=== PATIENT | female | born 1995 | race Caucasian/White ===

== ENCOUNTER 2017-10-16 03:03 | Inpatient (IN) | payer BC ==
[2017-10-16] MEDS ORDERED: Lidocaine 1% 50 ML MDV INJECT PRN (03:34)
[2017-10-16] MEDS ORDERED: Misoprostol 200 MCG Tab PO PRN (03:34)
[2017-10-16] MEDS ORDERED: Water For Irrigation,Sterile 1,000 ML Container IRR PRN (03:34)
[2017-10-16] MEDS ORDERED: Butorphanol 1 MG/ML SDV IVPUSH PRN (03:34)
[2017-10-16] MEDS ORDERED: Carboprost Tromethamine 250 MCG/1 ML Amp IM PRN (03:34)
[2017-10-16] MEDS ORDERED: Nalbuphine 10 MG/1 ML Vial IVPUSH PRN (03:34)
[2017-10-16] MEDS ORDERED: Sodium Chloride 0.9% 10 ML Syringe FLUSH PRN (03:34)
[2017-10-16] MEDS ORDERED: Methylergonovine 0.2 MG/1 ML Amp IM PRN (03:34)
[2017-10-16] MEDS ORDERED: Sodium Chloride 0.9% 2.5 ML Syringe FLUSH PRN (03:34)
[2017-10-16] MEDS ORDERED: Oxytocin/0.9 % Sodium Chloride 30 UNIT/500 ML BAG IV SCH (03:45)
[2017-10-16] MEDS ORDERED: Lactated Ringers 1,000 ML IV SCH (03:45)
--- NOTE | 2017-10-16 03:57 | PCM.LDHP ---
L&D History of Present Illness - General Date of Service: 10/16/17 Admit Problem/Dx: Patient Status Order with Admit Dx/Problem 10/16/17 03:11 Patient Status [ADT] Routine 10/16/17 03:34 Patient Status [ADT] Routine Admission Diagnosis/Problem Admission Diagnosis/Problem 10/16/17 03:52 22 yo 39 4/7wks EDC 10/19/2017. B+, RI, GBS neg, Active labor, intact Source of Information: Patient History Limitations: Reports: No Limitations - History of Present Illness Location, : Reports: Abdomen Improves with: Reports: None Worsens with: Reports: None Associated Symptoms: Reports: N - Related Data Allergies/Adverse Reactions: Allergies Allergy/AdvReac Type Severity Reaction Status Date / Time No Known Allergies Allergy Verified 10/09/17 15:54 H&P Review of Systems - Review of Systems: Review Of Systems: See Below General: Reports: No Symptoms HEENT: Reports: No Symptoms Pulmonary: Reports: No Symptoms Cardiovascular: Reports: No Symptoms Gastrointestinal: Reports: No Symptoms Genitourinary: Reports: No Symptoms Musculoskeletal: Reports: No Symptoms Skin: Reports: No Symptoms Psychiatric: Reports: No Symptoms Neurological: Reports: No Symptoms Hematologic/Lymphatic: Reports: No Symptoms Immunologic: Reports: No Symptoms L&D Exam - Exam Exam: See Below - Vital Signs Weight: 87.543 kg - OB Specific Fundal Height In cm: 39 Movement: Active Heart Tones: Present Presentation: Vertex - Kam Score Kam Score Cervix Position: Anterior Kam Score Consistency: Soft Kam Score Effacement: >80% Kam Score Dilation: > 5 cm Kam Score Infant's Station: -1 ,0 Kam Score Total: 12 - Exam General: Alert, Oriented, Cooperative HEENT: Hearing Intact Lungs: Normal Respiratory Effort GI/Abdominal Exam: Soft, Non-Tender Rectal Exam: Deferred Genitourinary: Normal external exam, Normal bimanual exam, Cervical dilitation Back Exam: Full Range of Motion, Other Extremities: Normal Range of Motion, No Pedal Edema, Normal Capillary Refill Skin: Warm, Dry, Intact Neurological: Reflexes Equal Bilateral, Normal Speech, Normal Tone Psychiatric: Alert, Normal Affect, Normal Mood - Problem List (1) Supervision of normal IUP (intrauterine ) in multigravida SNOMED Code(s): 001711159, 534740822 ICD Code: Z34.80 - ENCOUNTER FOR SUPRVSN OF NORMAL , UNSP TRIMESTER Status: Acute Current Visit: Yes Qualifiers: Trimester: third trimester Qualified Code(s): Z34.83 - Encounter for supervision of other normal , third trimester Problem List Initiated/Reviewed/Updated: Yes Orders Last 24hrs: Active Orders 24 hr Category Date Time Status Patient Status [ADT] Routine ADT 10/16/17 03:11 Active Patient Status [ADT] Routine ADT 10/16/17 03:34 Active Heart Tones [RC] CONTINUOUS Care 10/16/17 03:34 Active Non Stress Test [RC] PER UNIT ROUTINE Care 10/16/17 03:11 Active Non Stress Test [RC] PER UNIT ROUTINE Care 10/16/17 03:34 Active May Shower [RC] ASDIRECTED Care 10/16/17 03:34 Active Notify Provider [RC] PRN Care 10/16/17 03:34 Active Up ad Nettie [RC] ASDIRECTED Care 10/16/17 03:11 Active Up ad Nettie [RC] ASDIRECTED Care 10/16/17 03:34 Active Vaginal Exam [RC] Click to Edit Care 10/16/17 03:11 Active Vaginal Exam [RC] PRN Care 10/16/17 03:34 Active Vital Signs [RC] PER UNIT ROUTINE Care 10/16/17 03:11 Active Vital Signs [RC] PER UNIT ROUTINE Care 10/16/17 03:34 Active CBC W/O DIFF,HEMOGRAM [HEME] Routine Lab 10/16/17 03:34 Ordered TYPE AND SCREEN [BBK] Routine Lab 10/16/17 03:34 Ordered Butorphanol [Stadol] Med 10/16/17 03:34 Active 1 mg IVPUSH Q1H PRN Carboprost Tromethamine [Hemabate DS] Med 10/16/17 03:34 Active 250 mcg IM ASDIRECTED PRN Lactated Ringers [Ringers, Lactated] 1,000 ml Med 10/16/17 03:45 Active IV ASDIRECTED Lidocaine 1% [Xylocaine 1%] Med 10/16/17 03:34 Active 50 ml INJECT .ONCE PRN Methylergonovine [Methergine] Med 10/16/17 03:34 Active 0.2 mg IM ASDIRECTED PRN Misoprostol [Cytotec] Med 10/16/17 03:34 Active 200 mcg PO .ONCE PRN Nalbuphine [Nubain] Med 10/16/17 03:34 Active 10 mg IVPUSH Q1H PRN Oxytocin/0.9 % Sodium Chloride [Oxytocin 30 Unit/500 ML Med 10/16/17 03:45 Active -NS] 30 unit in 500 ml IV ASDIRECTED Sodium Chloride 0.9% [Saline Flush] Med 10/16/17 03:34 Active 10 ml FLUSH ASDIRECTED PRN Sodium Chloride 0.9% [Saline Flush] Med 10/16/17 03:34 Active 2.5 ml FLUSH ASDIRECTED PRN Water For Irrigation,Sterile [Sterile Water for Med 10/16/17 03:34 Active Irrigation] 1,000 ml IRR ASDIRECTED PRN Scalp Electrode [WOMSER] Per Unit Routine Oth 10/16/17 03:34 Ordered Peripheral IV Insertion Adult [OM.PC] Routine Oth 10/16/17 03:34 Ordered Resuscitation Status Routine Resus Stat 10/16/17 03:34 Ordered Medication Orders Butorphanol Tartrate (Stadol) 1 mg IVPUSH Q1H PRN PRN Reason: Pain Carboprost Tromethamine (Hemabate Ds) 250 mcg IM ASDIRECTED PRN PRN Reason: Post Hemorrhage Lactated Ringer's (Ringers, Lactated) 1,000 mls @ 150 mls/hr IV ASDIRECTED LATANYA Oxytocin/Sodium Chloride (Oxytocin 30 Unit/500 Ml-Ns) 30 unit in 500 mls @ 999 mls/hr IV ASDIRECTED LATANYA Lidocaine HCl (Xylocaine 1%) 50 ml INJECT .ONCE PRN PRN Reason: Laceration repair Methylergonovine Maleate (Methergine) 0.2 mg IM ASDIRECTED PRN PRN Reason: Post Hemorrhage Misoprostol (Cytotec) 200 mcg PO .ONCE PRN PRN Reason: Post Hemorrhage Nalbuphine HCl (Nubain) 10 mg IVPUSH Q1H PRN PRN Reason: Pain (severe 7-10) Sodium Chloride (Saline Flush) 10 ml FLUSH ASDIRECTED PRN PRN Reason: Keep Vein Open Sodium Chloride (Saline Flush) 2.5 ml FLUSH ASDIRECTED PRN PRN Reason: Keep Vein Open Sterile Water (Sterile Water For Irrigation) 1,000 ml IRR ASDIRECTED PRN PRN Reason: delivery Assessment/Plan Comment:: Labor A: 22 yo 39 4/7wks EDC 10/19/2017. B+, RI, GBS neg, Active labor, intact P: Admit to L&D, epidural prn, anticipate . Dr Bonilla updated on pt status.
--- NOTE | 2017-10-16 04:32 | PCM.DEL ---
L & D Note - General Info Date of Service: 10/16/17 Mother's Due Date: 10/19/17 - Delivery Note Labor: Spontaneous Delivery Outcome: Livebirth Infant Delivery Method: Spontaneous Vaginal Delivery-Single Delivery Mode: Spontaneous Presentation: Vertex Nuchal Cord: None Anesthesia Type: None Amniotic Fluid Description: Clear Episiotomy Type: None Laceration: None Placenta: Intact, Spontaneous Cord: 3 Vessels Estimated Blood Loss: 150 Resuscitation Needed: No Score 1 min: 9 Score 5 min: 9 Second Stage Interventions: Reports: Other (see below) (Head delivered spont. Body followed easily) Delivery Comments (Free Text/Narrative):: of viable female over intact perineum. Head delivered without pushing and then shoulders and body followed easily. to mothers abdomen with RN at for eval. Delayed cord clamping. Pitocin to IVF. Cord clamped and cut. pink and crying. Placenta delivered grossly intact. Inspection noted intact perineum. Infant APGARS 9/9, Wt 7lb 7oz. EBL 150. Infant and mother left in stable condition for recovery. - General Info Date of Service: 10/16/17 Admission Dx/Problem (Free Text): Patient Status Order with Admit Dx/Problem 10/16/17 03:11 Patient Status [ADT] Routine 10/16/17 03:34 Patient Status [ADT] Routine Admission Diagnosis/Problem Admission Diagnosis/Problem 10/16/17 03:52 22 yo 39 4/7wks EDC 10/19/2017. B+, RI, GBS neg, Active labor, intact Functional Status: Reports: Pain Controlled, Tolerating Diet - Review of Systems General: Reports: No Symptoms HEENT: Reports: No Symptoms Pulmonary: Reports: No Symptoms Cardiovascular: Reports: No Symptoms Gastrointestinal: Reports: No Symptoms Genitourinary: Reports: No Symptoms Musculoskeletal: Reports: No Symptoms Skin: Reports: No Symptoms Neurological: Reports: No Symptoms Psychiatric: Reports: No Symptoms - Patient Data Weight - Most Recent: 87.543 kg Lab Results Last 24 Hours: Laboratory Results - last 24 hr 10/16/17 Range/Units 03:47 WBC 16.52 H (4.0-11.0) K/uL RBC 4.63 (4.30-5.90) M/uL Hgb 11.8 L (12.0-16.0) g/dL Hct 36.1 (36.0-46.0) % MCV 78.0 L (80.0-98.0) fL MCH 25.5 L (27.0-32.0) pg MCHC 32.7 (31.0-37.0) g/dL RDW Std Deviation 41.1 (28.0-62.0) fl RDW Coeff of Massimo 15 (11.0-15.0) % Plt Count 202 (150-400) K/uL MPV 9.90 (7.40-12.00) fL Nucleated RBC % 0.0 /100WBC Nucleated RBCs # 0 K/uL Med Orders - Current: Current Medications Butorphanol Tartrate (Stadol) 1 mg IVPUSH Q1H PRN PRN Reason: Pain Carboprost Tromethamine (Hemabate Ds) 250 mcg IM ASDIRECTED PRN PRN Reason: Post Hemorrhage Lactated Ringer's (Ringers, Lactated) 1,000 mls @ 150 mls/hr IV ASDIRECTED [facility] Last Admin: 10/16/17 04:06 Dose: 150 mls/hr Oxytocin/Sodium Chloride (Oxytocin 30 Unit/500 Ml-Ns) 30 unit in 500 mls @ 999 mls/hr IV ASDIRECTED [facility] Last Admin: 10/16/17 04:06 Dose: 999 mls/hr Lidocaine HCl (Xylocaine 1%) 50 ml INJECT .ONCE PRN PRN Reason: Laceration repair Methylergonovine Maleate (Methergine) 0.2 mg IM ASDIRECTED PRN PRN Reason: Post Hemorrhage Misoprostol (Cytotec) 200 mcg PO .ONCE PRN PRN Reason: Post Hemorrhage Nalbuphine HCl (Nubain) 10 mg IVPUSH Q1H PRN PRN Reason: Pain (severe 7-10) Sodium Chloride (Saline Flush) 10 ml FLUSH ASDIRECTED PRN PRN Reason: Keep Vein Open Sodium Chloride (Saline Flush) 2.5 ml FLUSH ASDIRECTED PRN PRN Reason: Keep Vein Open Sterile Water (Sterile Water For Irrigation) 1,000 ml IRR ASDIRECTED PRN PRN Reason: delivery - Exam General: Alert, Oriented, Cooperative, No Acute Distress Lungs: Normal Respiratory Effort GI/Abdominal Exam: Soft, Non-Tender (Female) Exam: Normal External Exam, Normal Speculum Exam, Vaginal Bleeding Back Exam: Full Range of Motion, Other Extremities: Normal Range of Motion, No Pedal Edema, Normal Capillary Refill Skin: Warm, Dry, Intact Neurological: No New Focal Deficit, Normal Speech, Normal Tone Psy/Mental Status: Alert, Normal Affect, Normal Mood - Problem List & Annotations (1) Supervision of normal IUP (intrauterine ) in multigravida SNOMED Code(s): 895346191, 020848828 Code(s): Z34.80 - ENCOUNTER FOR SUPRVSN OF NORMAL , UNSP TRIMESTER Status: Acute Current Visit: Yes Qualifiers: Trimester: third trimester Qualified Code(s): Z34.83 - Encounter for supervision of other normal , third trimester (2) (normal spontaneous vaginal delivery) SNOMED Code(s): 91387882 Code(s): O80 - ENCOUNTER FOR FULL-TERM UNCOMPLICATED DELIVERY Status: Acute Priority: High Current Visit: Yes - Problem List Review Problem List Initiated/Reviewed/Updated: Yes - Plan Plan:: Labor A: 22 yo 39 4/7wks EDC 10/19/2017. B+, RI, GBS neg, Active labor, intact P: Admit to L&D, epidural prn, anticipate . Dr Bonilla updated on pt status. Delivery A: of healthy baby girl Sara Wisdom, APGARS 9/9, Wt: 7lb 7oz. Intact perineum, EBL 150cc. Stable mom and baby P; routine pp plan of care.
[2017-10-16] MEDS ORDERED: Benzocaine/Menthol 20%-0.5% Spray 78 GM Cannister TOP PRN (04:37)
[2017-10-16] MEDS ORDERED: oxyCODONE 5 MG Tab PO PRN (04:37)
[2017-10-16] MEDS ORDERED: Acetaminophen 500 MG Tab PO PRN (04:37)
[2017-10-16] MEDS ORDERED: Witch Hazel Medicated Pads 40/Jar TOP PRN (04:37)
[2017-10-16] MEDS ORDERED: Docusate Sodium 100 MG Cap PO PRN (04:37)
[2017-10-16] MEDS ORDERED: Ibuprofen 400 MG Tab PO PRN (04:37)
[2017-10-16] MEDS ORDERED: Bisacodyl 10 MG Supp RECTAL PRN (04:37)
[2017-10-16] MEDS ORDERED: Lanolin 100% Cream 7 GM Tube TOP PRN (04:37)
[2017-10-16] MEDS: Ibuprofen 800 MG Tab PO PRN ×3 (04:52→17:55)
[2017-10-16] MEDS: Acetaminophen 500 MG Tab PO PRN ×2 (16:49→20:57)
--- NOTE | 2017-10-17 08:08 | PCM.DCSUM1 ---
Discharge Summary - Hospital Course Free Text/Narrative:: Discharge home with infant. Follow up 6 weeks for post visit or sooner if needed. - Discharge Data Discharge Date: 10/17/17 Discharge Disposition: Home, Self-Care 01 Condition: Good - Discharge Diagnosis/Problem(s) (1) Supervision of normal IUP (intrauterine ) in multigravida SNOMED Code(s): 340714089, 503367549 ICD Code: Z34.80 - ENCOUNTER FOR SUPRVSN OF NORMAL , UNSP TRIMESTER Status: Acute Current Visit: Yes Qualifiers: Trimester: third trimester Qualified Code(s): Z34.83 - Encounter for supervision of other normal , third trimester (2) (normal spontaneous vaginal delivery) SNOMED Code(s): 00331635 ICD Code: O80 - ENCOUNTER FOR FULL-TERM UNCOMPLICATED DELIVERY Status: Acute Priority: High Current Visit: Yes - Patient Instructions Diet: Usual Diet as Tolerated Activity: As Tolerated, No Strenuous Activities, Rest and Relax Today Driving: May Drive Today Showering/Bathing: May Shower Notify Provider of: Fever, Increased Pain, Swelling and Redness, Drainage, Nausea and/or Vomiting Other/Special Instructions: Discharge home with infant. Follow up 6 weeks for post visit or sooner if needed. - Discharge Plan Referrals: [facility] [Outside] Madyson Henriquez CNM [Mid-] - 11/29/17 3:00 pm - General Info Date of Service: 10/17/17 Admission Dx/Problem (Free Text: Patient Status Order with Admit Dx/Problem 10/16/17 03:11 Patient Status [ADT] Routine 10/16/17 03:34 Patient Status [ADT] Routine Admission Diagnosis/Problem Admission Diagnosis/Problem 10/16/17 03:52 22 yo 39 4/7wks EDC 10/19/2017. B+, RI, GBS neg, Active labor, intact Functional Status: Reports: Pain Controlled, Tolerating Diet, Ambulating, Urinating - Review of Systems General: Reports: No Symptoms HEENT: Reports: No Symptoms Pulmonary: Reports: No Symptoms Cardiovascular: Reports: No Symptoms Gastrointestinal: Reports: No Symptoms Genitourinary: Reports: No Symptoms Musculoskeletal: Reports: No Symptoms Skin: Reports: No Symptoms Neurological: Reports: No Symptoms Psychiatric: Reports: No Symptoms - Patient Data Vitals - Most Recent: Last Vital Signs Temp 37.1 C 10/16/17 20:00 Pulse 69 10/16/17 20:00 Resp 18 10/16/17 20:00 BP 111/75 10/16/17 20:00 Pulse Ox 97 10/16/17 20:00 Weight - Most Recent: 87.543 kg Med Orders - Current: Current Medications Acetaminophen (Tylenol Extra Strength) 500 mg PO Q4H PRN PRN Reason: Pain Acetaminophen (Tylenol Extra Strength) 1,000 mg PO Q4H PRN PRN Reason: Pain Last Admin: 10/16/17 20:57 Dose: 1,000 mg Benzocaine/Menthol (Dermoplast Pain Relief 20%-0.5% [place]) 78 gm TOP ASDIRECTED PRN PRN Reason: Perineal Comfort Measure Bisacodyl (Dulcolax) 10 mg RECTAL .ONCE PRN PRN Reason: Constipation Docusate Sodium (Colace) 100 mg PO BID PRN PRN Reason: Constipation Emollient Ointment (Lansinoh Hpa) 0 gm TOP ASDIRECTED PRN PRN Reason: Sore Nipples Ibuprofen (Motrin) 400 mg PO Q4H PRN PRN Reason: Pain Last Admin: 10/17/17 05:07 Dose: 400 mg Ibuprofen (Motrin) 800 mg PO Q6H PRN PRN Reason: Pain Last Admin: 10/16/17 17:55 Dose: 800 mg Oxycodone HCl (Oxycodone) 5 mg PO Q2H PRN PRN Reason: Pain Last Admin: 10/16/17 16:49 Dose: 5 mg Witch [place] (Tucks) 1 pad TOP ASDIRECTED PRN PRN Reason: comfort care Discontinued Medications Butorphanol Tartrate (Stadol) 1 mg IVPUSH Q1H PRN PRN Reason: Pain Carboprost Tromethamine (Hemabate Ds) 250 mcg IM ASDIRECTED PRN PRN Reason: Post Hemorrhage Lactated Ringer's (Ringers, Lactated) 1,000 mls @ 150 mls/hr IV ASDIRECTED LATANYA Last Admin: 10/16/17 04:06 Dose: 150 mls/hr Oxytocin/Sodium Chloride (Oxytocin 30 Unit/500 Ml-Ns) 30 unit in 500 mls @ 999 mls/hr IV ASDIRECTED [facility] Last Admin: 10/16/17 04:06 Dose: 999 mls/hr Lidocaine HCl (Xylocaine 1%) 50 ml INJECT .ONCE PRN PRN Reason: Laceration repair Methylergonovine Maleate (Methergine) 0.2 mg IM ASDIRECTED PRN PRN Reason: Post Hemorrhage Misoprostol (Cytotec) 200 mcg PO .ONCE PRN PRN Reason: Post Hemorrhage Nalbuphine HCl (Nubain) 10 mg IVPUSH Q1H PRN PRN Reason: Pain (severe 7-10) Sodium Chloride (Saline Flush) 10 ml FLUSH ASDIRECTED PRN PRN Reason: Keep Vein Open Sodium Chloride (Saline Flush) 2.5 ml FLUSH ASDIRECTED PRN PRN Reason: Keep Vein Open Sterile Water (Sterile Water For Irrigation) 1,000 ml IRR ASDIRECTED PRN PRN Reason: delivery - Exam General: Reports: Alert, Oriented, Cooperative, No Acute Distress Lungs: Reports: Normal Respiratory Effort GI/Abdominal Exam: Soft, Non-Tender (Female) Exam: Vaginal Bleeding Rectal (Female) Exam: Deferred Back Exam: Reports: Full Range of Motion Extremities: Normal Range of Motion, Non-Tender, No Pedal Edema, Normal Capillary Refill Skin: Reports: Warm, Dry, Intact Neurological: Reports: No New Focal Deficit, Normal Gait, Normal Speech, Normal Tone Psy/Mental Status: Reports: Alert, Normal Affect, Normal Mood *Q Meaningful Use (DIS) - VTE *Q VTE Criteria *Q: - Stroke *Q Stroke Criteria *Q: - AMI *Q AMI Criteria *Q:
[2017-10-17] MEDS: Ibuprofen 800 MG Tab PO PRN (11:04)
== END 2017-10-17 12:15 | disposition home or self-care (01) | DRG 560 ==
LOC: MW.OBCHECK 03:03 → MW.OB 03:06 → MW.OBCHECK 03:34 → OBSVTOIN 04:04
PROVIDERS: ADMIT Obstetrics & Gynecology; ATTEND Obstetrics & Gynecology
PROC: 10E0XZZ Delivery of Products of Conception, External Approach (ICD-10-PCS; principal; 2017-10-16)
DX: O80 Encounter for full-term uncomplicated delivery (principal); Z3A.39 39 weeks gestation of pregnancy; Z37.0 Single live birth
CPT/HCPCS: 59025; 59409; 85027; 86850; 86900; 86901; A9270-GY; J2590; J7120

== ENCOUNTER 2019-03-02 02:16 | Inpatient (IN) | payer BC ==
[~2019-03-02 02:16] MED LIST: Ampicillin 2 GM in Sodium Chloride 0.9% 100 ML IV ONE
[2019-03-02] MEDS ORDERED: Methylergonovine 0.2 MG/1 ML Amp IM PRN (02:31)
[2019-03-02] MEDS ORDERED: Butorphanol 1 MG/ML SDV IVPUSH PRN (02:31)
[2019-03-02] MEDS ORDERED: Carboprost Tromethamine 250 MCG/1 ML Amp IM PRN (02:31)
[2019-03-02] MEDS ORDERED: Sodium Chloride 0.9% 10 ML Syringe FLUSH PRN (02:31)
[2019-03-02] MEDS ORDERED: Tranexamic Acid 1,000 MG in Sodium Chloride 0.9% 100 ML IV PRN (02:31)
[2019-03-02] MEDS ORDERED: Lidocaine 1% 50 ML MDV INJECT PRN (02:31)
[2019-03-02] MEDS ORDERED: Sodium Chloride 0.9% 10 ML SDV IV PRN (02:31)
[2019-03-02] MEDS ORDERED: Ondansetron 4 MG/2 ML SDV IV PRN (02:31)
[2019-03-02] MEDS ORDERED: Misoprostol 200 MCG Tab PO PRN (02:31)
[2019-03-02] MEDS ORDERED: Sodium Chloride 0.9% 2.5 ML Syringe FLUSH PRN (02:31)
[2019-03-02] MEDS ORDERED: Nalbuphine 10 MG/1 ML Vial IVPUSH PRN (02:31)
[2019-03-02] MEDS ORDERED: Water For Irrigation,Sterile 1,000 ML Container IRR PRN (02:31)
[2019-03-02] MEDS ORDERED: Oxytocin/0.9 % Sodium Chloride 30 UNIT/500 ML BAG IV SCH (02:45)
[2019-03-02] MEDS ORDERED: Lactated Ringers 1,000 ML IV SCH (02:45)
--- NOTE | 2019-03-02 02:55 | PCM.LDHP ---
L&D History of Present Illness - General Date of Service: 03/02/19 Admit Problem/Dx: Patient Status Order with Admit Dx/Problem 03/02/19 02:31 Patient Status [ADT] Routine Admission Diagnosis/Problem Admission Diagnosis/Problem 03/02/19 02:51 23 yo EDC 02/25/2019 40 5/7wks B+. R=equivocal, GBA pos. Active labor Source of Information: Patient History Limitations: Reports: No Limitations - History of Present Illness Timing/Duration: Reports: minutes: Location, : Reports: Abdomen Quality: Reports: Stabbing Severity: Severe Improves with: Reports: None Worsens with: Reports: None Associated Symptoms: Reports: N - Related Data Allergies/Adverse Reactions: Allergies Allergy/AdvReac Type Severity Reaction Status Date / Time No Known Allergies Allergy Verified 10/15/18 01:22 Past Medical History - Past Health History Medical/Surgical History: Denies Medical/Surgical History [employer] History: Reports: , Spontaneous Social & Family History - Family History Family Medical History: Noncontributory - Caffeine Use Caffeine Use: Reports: Coffee, Soda H&P Review of Systems - Review of Systems: Review Of Systems: See Below General: Reports: No Symptoms HEENT: Reports: No Symptoms Pulmonary: Reports: No Symptoms Cardiovascular: Reports: No Symptoms Gastrointestinal: Reports: No Symptoms Genitourinary: Reports: No Symptoms Musculoskeletal: Reports: No Symptoms Skin: Reports: No Symptoms Psychiatric: Reports: No Symptoms Neurological: Reports: No Symptoms Hematologic/Lymphatic: Reports: No Symptoms Immunologic: Reports: No Symptoms L&D Exam - Exam Exam: See Below - OB Specific Contraction Intensity: Moderate to Strong Movement: Active Heart Tones: Present Heart Rate (FHR) Variability: Moderate (6-25 bmp) Presentation: Vertex - Kam Score Kam Score Cervix Position: Midposition Kam Score Consistency: Soft Kam Score Effacement: >80% Kam Score Dilation: > 5 cm Kam Score Infant's Station: -2 Kam Score Total: 10 - Exam General: Alert, Oriented Lungs: Normal Respiratory Effort Rectal Exam: Deferred Genitourinary: Normal external exam, Normal bimanual exam, Cervical dilitation. No: Cervical fluid Back Exam: Full Range of Motion Extremities: Normal Range of Motion, Non-Tender Skin: Warm, Dry, Intact Neurological: Reflexes Equal Bilateral, Strength Equal Bilateral, Normal Speech , Normal Tone, Sensation Intact Psychiatric: Alert, Normal Affect, Normal Mood - Problem List (1) Supervision of normal IUP (intrauterine ) in multigravida SNOMED Code(s): 134998260, 439468569, 539348286 ICD Code: Z34.80 - ENCOUNTER FOR SUPRVSN OF NORMAL , UNSP TRIMESTER Status: Acute Priority: High Current Visit: No Qualifiers: Trimester: third trimester Problem List Initiated/Reviewed/Updated: Yes Orders Last 24hrs: Active Orders 24 hr Category Date Time Status Patient Status [ADT] Routine ADT 03/02/19 02:31 Active Heart Tones [RC] CONTINUOUS Care 03/02/19 02:31 Active Non Stress Test [RC] PER UNIT ROUTINE Care 03/02/19 02:31 Active May Shower [RC] ASDIRECTED Care 03/02/19 02:31 Active Notify Provider [RC] PRN Care 03/02/19 02:31 Active Up ad Nettie [RC] ASDIRECTED Care 03/02/19 02:31 Active Vaginal Exam [RC] PRN Care 03/02/19 02:31 Active Vital Signs [RC] PER UNIT ROUTINE Care 03/02/19 02:31 Active CBC W/O DIFF,HEMOGRAM [HEME] Routine Lab 03/02/19 02:31 Ordered TYPE AND SCREEN [BBK] Routine Lab 03/02/19 02:31 Ordered Ampicillin 1 gm Med 03/02/19 06:00 Active Sodium Chloride 0.9% [Normal Saline] 50 ml IV Q4H Butorphanol [Stadol] Med 03/02/19 02:31 Active 1 mg IVPUSH Q1H PRN Carboprost Tromethamine [Hemabate DS] Med 03/02/19 02:31 Active 250 mcg IM ASDIRECTED PRN Lactated Ringers [Ringers, Lactated] 1,000 ml Med 03/02/19 02:45 Active IV ASDIRECTED Lidocaine 1% [Xylocaine 1%] Med 03/02/19 02:31 Active 50 ml INJECT ONETIME PRN Methylergonovine [Methergine] Med 03/02/19 02:31 Active 0.2 mg IM ASDIRECTED PRN Nalbuphine [Nubain] Med 03/02/19 02:31 Active 10 mg IVPUSH Q1H PRN Ondansetron [Zofran] Med 03/02/19 02:31 Active 4 mg IV Q4H PRN Oxytocin/0.9 % Sodium Chloride [Oxytocin 30 Unit/500 ML Med 03/02/19 02:45 Active -NS] 30 unit in 500 ml IV TITRATE Sodium Chloride 0.9% [Normal Saline] Med 03/02/19 02:31 Active 10 ml IV ASDIRECTED PRN Sodium Chloride 0.9% [Saline Flush] Med 03/02/19 02:31 Active 10 ml FLUSH ASDIRECTED PRN Sodium Chloride 0.9% [Saline Flush] Med 03/02/19 02:31 Active 2.5 ml FLUSH ASDIRECTED PRN Tranexamic Acid [Cyklokapron] 1,000 mg Med 03/02/19 02:31 Active Sodium Chloride 0.9% [Normal Saline] 100 ml IV ONETIME Water For Irrigation,Sterile [Sterile Water for Med 03/02/19 02:31 Active Irrigation] 1,000 ml IRR ASDIRECTED PRN miSOPROStol [Cytotec] Med 03/02/19 02:31 Active 200 mcg PO ONETIME PRN Scalp Electrode [WOMSER] Per Unit Routine Oth 03/02/19 02:31 Ordered Peripheral IV Insertion Adult [OM.PC] Routine Oth 03/02/19 02:31 Ordered Resuscitation Status Routine Resus Stat 03/02/19 02:31 Ordered Medication Orders Butorphanol Tartrate (Stadol) 1 mg IVPUSH Q1H PRN PRN Reason: Pain Carboprost Tromethamine (Hemabate Ds) 250 mcg IM ASDIRECTED PRN PRN Reason: Post Hemorrhage Lactated Ringer's (Ringers, Lactated) 1,000 mls @ 150 mls/hr IV ASDIRECTED LATANYA Oxytocin/Sodium Chloride (Oxytocin 30 Unit/500 Ml-Ns) 30 unit in 500 mls @ 999 mls/hr IV TITRATE LATANYA Tranexamic Acid 1,000 mg/ (Sodium Chloride) 110 mls @ 660 mls/hr IV ONETIME PRN PRN Reason: Bleeding Ampicillin Sodium 1 gm/ Sodium (Chloride) 50 mls @ 100 mls/hr IV Q4H LATANYA Lidocaine HCl (Xylocaine 1%) 50 ml INJECT ONETIME PRN PRN Reason: Laceration repair Methylergonovine Maleate (Methergine) 0.2 mg IM ASDIRECTED PRN PRN Reason: Post Hemorrhage Misoprostol (Cytotec) 200 mcg PO ONETIME PRN PRN Reason: Post Hemorrhage Nalbuphine HCl (Nubain) 10 mg IVPUSH Q1H PRN PRN Reason: Pain (severe 7-10) Ondansetron HCl (Zofran) 4 mg IV Q4H PRN PRN Reason: Nausea/Vomiting Sodium Chloride (Saline Flush) 10 ml FLUSH ASDIRECTED PRN PRN Reason: Keep Vein Open Sodium Chloride (Saline Flush) 2.5 ml FLUSH ASDIRECTED PRN PRN Reason: Keep Vein Open Sodium Chloride (Normal Saline) 10 ml IV ASDIRECTED PRN PRN Reason: IV Use Sterile Water (Sterile Water For Irrigation) 1,000 ml IRR ASDIRECTED PRN PRN Reason: delivery Assessment/Plan Comment:: Labor A: 23 yo EDC 02/25/2019 40 5/7wks B+. R=equivocal, GBA pos. Active labor P: Admit, Amp for GBS pos, epidural now, anticipate , Dr Bonilla updated
--- NOTE | 2019-03-02 03:33 | PCM.DEL ---
L & D Note - General Info Date of Service: 03/02/19 Mother's Due Date: 02/25/19 - Delivery Note Labor: Spontaneous Delivery Outcome: Livebirth Infant Delivery Method: Spontaneous Vaginal Delivery-Single Delivery Mode: Spontaneous Presentation: Vertex Nuchal Cord: Present Anesthesia Type: None Episiotomy Type: None Laceration: None Placenta: Intact, Spontaneous Cord: 3 Vessels Resuscitation Needed: No : Stimulated Score 1 min: 9 Score 5 min: 9 Second Stage Interventions: Reports: Pushing Effectively Delivery Comments (Free Text/Narrative):: of viable female, head delivered with good pushing, nuchal x1, infant delivered through the cord. Spont cry, to mothers abd with RN at bs to eval infant. Delayed cord clamping, pitocin to IVF, cord clamped x2 and cut. Cord blood collected. Placenta delivered grossly intact. Inspection noted intact perineum. EBL 100cc, APGARS 9/9, Wt pending bonding. Mother and baby left in stable condition for recovery. - General Info Date of Service: 03/02/19 Admission Dx/Problem (Free Text): Patient Status Order with Admit Dx/Problem 03/02/19 02:31 Patient Status [ADT] Routine Admission Diagnosis/Problem Admission Diagnosis/Problem 03/02/19 02:51 23 yo EDC 02/25/2019 40 5/7wks B+. R=equivocal, GBA pos. Active labor Functional Status: Reports: Pain Controlled, Tolerating Diet - Review of Systems General: Reports: No Symptoms HEENT: Reports: No Symptoms Pulmonary: Reports: No Symptoms Cardiovascular: Reports: No Symptoms Gastrointestinal: Reports: No Symptoms Genitourinary: Reports: No Symptoms Musculoskeletal: Reports: No Symptoms Skin: Reports: No Symptoms Neurological: Reports: No Symptoms Psychiatric: Reports: No Symptoms - Patient Data Lab Results Last 24 Hours: Laboratory Results - last 24 hr 03/02/19 Range/Units 02:55 WBC 19.07 H (4.0-11.0) K/uL RBC 4.52 (4.30-5.90) M/uL Hgb 13.8 (12.0-16.0) g/dL Hct 39.3 (36.0-46.0) % MCV 86.9 (80.0-98.0) fL MCH 30.5 (27.0-32.0) pg MCHC 35.1 (31.0-37.0) g/dL RDW Std Deviation 45.4 (28.0-62.0) fl RDW Coeff of Massimo 14 (11.0-15.0) % Plt Count 211 (150-400) K/uL MPV 10.40 (7.40-12.00) fL Nucleated RBC % 0.0 /100WBC Nucleated RBCs # 0 K/uL Med Orders - Current: Current Medications Butorphanol Tartrate (Stadol) 1 mg IVPUSH Q1H PRN PRN Reason: Pain Carboprost Tromethamine (Hemabate Ds) 250 mcg IM ASDIRECTED PRN PRN Reason: Post Hemorrhage Lactated Ringer's (Ringers, Lactated) 1,000 mls @ 150 mls/hr IV ASDIRECTED [facility] Last Admin: 03/02/19 03:01 Dose: 150 mls/hr Oxytocin/Sodium Chloride (Oxytocin 30 Unit/500 Ml-Ns) 30 unit in 500 mls @ 999 mls/hr IV TITRATE [facility] Last Admin: 03/02/19 03:16 Dose: 999 mls/hr Tranexamic Acid 1,000 mg/ (Sodium Chloride) 110 mls @ 660 mls/hr IV ONETIME PRN PRN Reason: Bleeding Ampicillin Sodium 1 gm/ Sodium (Chloride) 50 mls @ 100 mls/hr IV Q4H [facility] Lidocaine HCl (Xylocaine 1%) 50 ml INJECT ONETIME PRN PRN Reason: Laceration repair Methylergonovine Maleate (Methergine) 0.2 mg IM ASDIRECTED PRN PRN Reason: Post Hemorrhage Misoprostol (Cytotec) 200 mcg PO ONETIME PRN PRN Reason: Post Hemorrhage Nalbuphine HCl (Nubain) 10 mg IVPUSH Q1H PRN PRN Reason: Pain (severe 7-10) Ondansetron HCl (Zofran) 4 mg IV Q4H PRN PRN Reason: Nausea/Vomiting Sodium Chloride (Saline Flush) 10 ml FLUSH ASDIRECTED PRN PRN Reason: Keep Vein Open Sodium Chloride (Saline Flush) 2.5 ml FLUSH ASDIRECTED PRN PRN Reason: Keep Vein Open Sodium Chloride (Normal Saline) 10 ml IV ASDIRECTED PRN PRN Reason: IV Use Sterile Water (Sterile Water For Irrigation) 1,000 ml IRR ASDIRECTED PRN PRN Reason: delivery Discontinued Medications Ampicillin Sodium 2 gm/ Sodium (Chloride) 100 mls @ 200 mls/hr IV ONETIME ONE Stop: 03/02/19 02:29 Last Admin: 03/02/19 03:01 Dose: 200 mls/hr - Exam General: Alert, Oriented, Cooperative, No Acute Distress Lungs: Normal Respiratory Effort GI/Abdominal Exam: Soft, Non-Tender (Female) Exam: Normal External Exam, Normal Bimanual Exam, Vaginal Bleeding Back Exam: Full Range of Motion Extremities: Normal Inspection, Normal Range of Motion, Non-Tender Skin: Warm, Dry, Intact Wound/Incisions: Healing Well Neurological: No New Focal Deficit, Normal Speech, Normal Tone Psy/Mental Status: Alert, Normal Affect, Normal Mood - Problem List & Annotations (1) Supervision of normal IUP (intrauterine ) in multigravida SNOMED Code(s): 191481793, 517743782, 795169907 Code(s): Z34.80 - ENCOUNTER FOR SUPRVSN OF NORMAL , UNSP TRIMESTER Status: Acute Priority: High Current Visit: No Qualifiers: Trimester: third trimester (2) (normal spontaneous vaginal delivery) SNOMED Code(s): 17626713, 440384805 Code(s): O80 - ENCOUNTER FOR FULL-TERM UNCOMPLICATED DELIVERY Status: Acute Priority: High Current Visit: No - Problem List Review Problem List Initiated/Reviewed/Updated: Yes - Plan Plan:: Labor A: 23 yo EDC 02/25/2019 40 5/7wks B+. R=equivocal, GBA pos. Active labor P: Admit, Amp for GBS pos, epidural now, anticipate , Dr Bonilla updated Delivery A: of Female ([place]) APGARS 9/9, Wt pending. Intact perineum, EBL 100cc. Mother and baby bonding well P: Routine pp plan of care
[2019-03-02] MEDS ORDERED: Benzocaine/Menthol 20%-0.5% Spray 78 GM Cannister TOP PRN (03:40)
[2019-03-02] MEDS ORDERED: Witch Hazel Medicated Pads 40/Jar TOP PRN (03:40)
[2019-03-02] MEDS ORDERED: Ibuprofen 400 MG Tab PO PRN (03:40)
[2019-03-02] MEDS ORDERED: oxyCODONE 5 MG Tab PO PRN (03:40)
[2019-03-02] MEDS ORDERED: Acetaminophen 500 MG Tab PO PRN ×2 (03:40)
[2019-03-02] MEDS ORDERED: Bisacodyl 10 MG Supp RECTAL PRN (03:40)
[2019-03-02] MEDS ORDERED: Lanolin 100% Cream 7 GM Tube TOP PRN (03:40)
[2019-03-02] MEDS ORDERED: Docusate Sodium 100 MG Cap PO PRN (03:40)
[2019-03-02] MEDS: Ibuprofen 800 MG Tab PO PRN ×3 (04:37→18:44)
[2019-03-02] MEDS ORDERED: Ampicillin 1 GM in Sodium Chloride 0.9% 50 ML IV SCH (06:00)
--- NOTE | 2019-03-03 07:56 | PCM.DCSUM1 ---
Discharge Summary - Hospital Course Free Text/Narrative:: Discharge home with infant. Follow up in 6 weeks for . Diagnosis: Stroke: No - Discharge Data Discharge Date: 03/03/19 Discharge Disposition: Home, Self-Care 01 Condition: Good - Discharge Diagnosis/Problem(s) (1) Supervision of normal IUP (intrauterine ) in multigravida SNOMED Code(s): 171094097, 556288895, 533292720 ICD Code: Z34.80 - ENCOUNTER FOR SUPRVSN OF NORMAL , UNSP TRIMESTER Status: Acute Priority: High Current Visit: No Qualifiers: Trimester: third trimester (2) (normal spontaneous vaginal delivery) SNOMED Code(s): 80387070, 462595835 ICD Code: O80 - ENCOUNTER FOR FULL-TERM UNCOMPLICATED DELIVERY Status: Acute Priority: High Current Visit: No - Patient Instructions Diet: Usual Diet as Tolerated Activity: As Tolerated, No Strenuous Activities, Rest and Relax Today Driving: May Drive Today Showering/Bathing: May Shower Notify Provider of: Fever, Increased Pain, Swelling and Redness, Nausea and/or Vomiting Other/Special Instructions: Discharge home with . Follow up in 6 weeks for . - Discharge Plan *PRESCRIPTION DRUG MONITORING PROGRAM REVIEWED*: Not Applicable *COPY OF PRESCRIPTION DRUG MONITORING REPORT IN PATIENT MINDI: Not Applicable Prescriptions/Med Rec: Ibuprofen [Motrin] 800 mg PO Q6H PRN #90 tablet PRN Reason: Pain Home Medications: Home Meds Ibuprofen [Motrin] 800 mg PO Q6H PRN #90 tablet 03/03/19 [Rx] Oxygen Therapy Mode: Room Air - Discharge Summary/Plan Comment DC Time >30 min.: Yes - General Info Date of Service: 03/03/19 Admission Dx/Problem (Free Text: Patient Status Order with Admit Dx/Problem 03/02/19 02:31 Patient Status [ADT] Routine Admission Diagnosis/Problem Admission Diagnosis/Problem 03/02/19 02:51 23 yo EDC 02/25/2019 40 5/7wks B+. R=equivocal, GBA pos. Active labor Functional Status: Reports: Pain Controlled, Tolerating Diet, Ambulating, Urinating - Review of Systems General: Reports: No Symptoms HEENT: Reports: No Symptoms Pulmonary: Reports: No Symptoms Cardiovascular: Reports: No Symptoms Gastrointestinal: Reports: No Symptoms Genitourinary: Reports: No Symptoms Musculoskeletal: Reports: No Symptoms Skin: Reports: No Symptoms Neurological: Reports: No Symptoms Psychiatric: Reports: No Symptoms - Patient Data Vitals - Most Recent: Last Vital Signs Temp 36.4 C 03/03/19 07:05 Pulse 61 03/03/19 07:05 Resp 18 03/03/19 07:05 BP 126/55 L 03/03/19 07:05 Pulse Ox 100 03/03/19 07:05 Weight - Most Recent: 101.151 kg Med Orders - Current: Current Medications Acetaminophen (Tylenol Extra Strength) 500 mg PO Q4H PRN PRN Reason: Pain Acetaminophen (Tylenol Extra Strength) 1,000 mg PO Q4H PRN PRN Reason: Pain Last Admin: 03/02/19 13:41 Dose: 1,000 mg Benzocaine/Menthol (Dermoplast Pain Relief 20%-0.5% [place]) 78 gm TOP ASDIRECTED PRN PRN Reason: Perineal Comfort Measure Bisacodyl (Dulcolax) 10 mg RECTAL ONETIME PRN PRN Reason: Constipation Docusate Sodium (Colace) 100 mg PO BID PRN PRN Reason: Constipation Emollient Ointment (Lansinoh Hpa) 0 gm TOP ASDIRECTED PRN PRN Reason: Sore Nipples Ibuprofen (Motrin) 400 mg PO Q4H PRN PRN Reason: Pain Ibuprofen (Motrin) 800 mg PO Q6H PRN PRN Reason: Pain Last Admin: 03/02/19 18:44 Dose: 800 mg Oxycodone HCl (Oxycodone) 5 mg PO Q2H PRN PRN Reason: Pain Witch [place] (Tucks) 1 pad TOP ASDIRECTED PRN PRN Reason: comfort care Discontinued Medications Butorphanol Tartrate (Stadol) 1 mg IVPUSH Q1H PRN PRN Reason: Pain Carboprost Tromethamine (Hemabate Ds) 250 mcg IM ASDIRECTED PRN PRN Reason: Post Hemorrhage Ampicillin Sodium 2 gm/ Sodium (Chloride) 100 mls @ 200 mls/hr IV ONETIME ONE Stop: 03/02/19 02:29 Last Admin: 03/02/19 03:01 Dose: 200 mls/hr Lactated Ringer's (Ringers, Lactated) 1,000 mls @ 150 mls/hr IV ASDIRECTED [facility] Last Admin: 03/02/19 03:01 Dose: 150 mls/hr Oxytocin/Sodium Chloride (Oxytocin 30 Unit/500 Ml-Ns) 30 unit in 500 mls @ 999 mls/hr IV TITRATE [facility] Last Admin: 03/02/19 03:16 Dose: 999 mls/hr Tranexamic Acid 1,000 mg/ (Sodium Chloride) 110 mls @ 660 mls/hr IV ONETIME PRN PRN Reason: Bleeding Ampicillin Sodium 1 gm/ Sodium (Chloride) 50 mls @ 100 mls/hr IV Q4H [facility] Lidocaine HCl (Xylocaine 1%) 50 ml INJECT ONETIME PRN PRN Reason: Laceration repair Methylergonovine Maleate (Methergine) 0.2 mg IM ASDIRECTED PRN PRN Reason: Post Hemorrhage Misoprostol (Cytotec) 200 mcg PO ONETIME PRN PRN Reason: Post Hemorrhage Nalbuphine HCl (Nubain) 10 mg IVPUSH Q1H PRN PRN Reason: Pain (severe 7-10) Ondansetron HCl (Zofran) 4 mg IV Q4H PRN PRN Reason: Nausea/Vomiting Sodium Chloride (Saline Flush) 10 ml FLUSH ASDIRECTED PRN PRN Reason: Keep Vein Open Sodium Chloride (Saline Flush) 2.5 ml FLUSH ASDIRECTED PRN PRN Reason: Keep Vein Open Sodium Chloride (Normal Saline) 10 ml IV ASDIRECTED PRN PRN Reason: IV Use Sterile Water (Sterile Water For Irrigation) 1,000 ml IRR ASDIRECTED PRN PRN Reason: delivery - Exam General: Reports: Alert, Oriented, Cooperative, No Acute Distress Lungs: Reports: Normal Respiratory Effort GI/Abdominal Exam: Soft, Non-Tender (Female) Exam: Deferred, Vaginal Bleeding Rectal (Female) Exam: Deferred Back Exam: Reports: Normal Inspection, Full Range of Motion Extremities: Normal Inspection, Normal Range of Motion, Non-Tender, No Pedal Edema Skin: Reports: Warm, Dry, Intact Neurological: Reports: No New Focal Deficit, Normal Speech, Normal Tone, Strength Equal Bilateral Psy/Mental Status: Reports: Alert, Normal Affect, Normal Mood
[2019-03-03] MEDS: Ibuprofen 800 MG Tab PO PRN (08:58)
== END 2019-03-03 16:45 | disposition home or self-care (01) | DRG 560 ==
LOC: MW.OBCHECK 02:16 → MW.OB 02:17 → MW.OBCHECK 02:31 → OBSVTOIN 03:13 → MW.OB 06:13
PROVIDERS: ADMIT Obstetrics & Gynecology; ATTEND Obstetrics & Gynecology
PROC: 10E0XZZ Delivery of Products of Conception, External Approach (ICD-10-PCS; principal; 2019-03-02)
DX: O48.0 Post-term pregnancy (principal); O99.824 Streptococcus B carrier state complicating childbirth; Z3A.40 40 weeks gestation of pregnancy; O69.81X0 Labor and delivery complicated by cord around neck, without compression, not applicable or unspecified; Z37.0 Single live birth
CPT/HCPCS: 36415; 59025; 59409; 85027; 86850; 86900; 86901; A9270-GY; J0290; J2590; J7030; J7120

== ENCOUNTER 2020-09-08 17:12 | Observation (INO) | payer MEDICAID ==
[2020-09-08] MEDS: Lactated Ringers 1,000 ML IV SCH ×2 (17:30→22:54)
[2020-09-08] MEDS ORDERED: Carboprost Tromethamine 250 MCG/1 ML Amp IM PRN (17:57)
[2020-09-08] MEDS ORDERED: Methylergonovine 0.2 MG/1 ML Amp IM PRN (17:57)
[2020-09-08] MEDS ORDERED: Nalbuphine 10 MG/1 ML Vial IVPUSH PRN (17:57)
[2020-09-08] MEDS ORDERED: Sodium Chloride 0.9% 10 ML Syringe FLUSH PRN (17:57)
[2020-09-08] MEDS ORDERED: Butorphanol 1 MG/ML SDV IVPUSH PRN (17:57)
[2020-09-08] MEDS ORDERED: Sodium Chloride 0.9% 2.5 ML Syringe FLUSH PRN (17:57)
[2020-09-08] MEDS ORDERED: Misoprostol 200 MCG Tab PO PRN (17:57)
[2020-09-08] MEDS ORDERED: Lidocaine 1% 50 ML MDV INJECT PRN (17:57)
[2020-09-08] MEDS ORDERED: Tranexamic Acid 1,000 MG in Sodium Chloride 0.9% 100 ML IV PRN (17:57)
[2020-09-08] MEDS ORDERED: Water For Irrigation,Sterile 1,000 ML Container IRR PRN (17:57)
[2020-09-08] MEDS ORDERED: Sodium Chloride 0.9% 10 ML SDV IV PRN (17:57)
[2020-09-08] MEDS ORDERED: Oxytocin/0.9 % Sodium Chloride 30 UNIT/500 ML BAG IV SCH ×2 (18:00)
[2020-09-08] MEDS ORDERED: Terbutaline 1 MG/ML SDV SUBCUT PRN (18:00)
[2020-09-08] MEDS ORDERED: Oxytocin/0.9 % Sodium Chloride 30 UNIT/500 ML BAG ONE (18:22)
--- NOTE | 2020-09-08 22:21 | PCM.PREANE ---
Preanesthetic Assessment - Anesthesia/Transfusion/Family Hx Anesthesia History: Prior Anesthesia Without Reaction (epidurals) Transfusion History: No Prior Transfusion(s) - Review of Systems General: No Symptoms Pulmonary: No Symptoms Cardiovascular: No Symptoms Gastrointestinal: No Symptoms Neurological: No Symptoms Other: Reports: None - Physical Assessment NPO Status Date: 09/08/20 NPO Status Time: 22:10 Height: 1.63 m Weight: 106.594 kg ASA Class: 2 Mental Status: Alert & Oriented x3 Dentition: Reports: Normal Dentition - Lab Values: Laboratory Last Values WBC 14.06 K/uL (4.0-11.0) H 09/08/20 17:30 RBC 4.23 M/uL (4.30-5.90) L 09/08/20 17:30 Hgb 12.2 g/dL (12.0-16.0) 09/08/20 17:30 Hct 36.1 % (36.0-46.0) 09/08/20 17:30 MCV 85.3 fL (80.0-98.0) 09/08/20 17:30 MCH 28.8 pg (27.0-32.0) 09/08/20 17:30 MCHC 33.8 g/dL (31.0-37.0) 09/08/20 17:30 RDW Std Deviation 42.7 fl (28.0-62.0) 09/08/20 17:30 RDW Coeff of Massimo 14 % (11.0-15.0) 09/08/20 17:30 Plt Count 210 K/uL (150-400) 09/08/20 17:30 MPV 10.60 fL (7.40-12.00) 09/08/20 17:30 Nucleated RBC % 0.0 /100WBC 09/08/20 17:30 Nucleated RBCs # 0 K/uL 09/08/20 17:30 Blood Type B POSITIVE 09/08/20 17:30 Antibody Screen NEGATIVE 09/08/20 17:30 - Allergies Allergies/Adverse Reactions: Allergies Allergy/AdvReac Type Severity Reaction Status Date / Time No Known Allergies Allergy Verified 10/15/18 01:22 - Blood Blood Available: Yes - Acknowledgements Anesthesia Type Planned: Epidural (The patient understands and accepts the risks and benefits of the epidurals. all questions answered. Consent signed.) Pt an Appropriate Candidate for the Planned Anesthesia: Yes Alternatives and Risks of Anesthesia Discussed w Pt/Guardian: Yes Pt/Guardian Understands and Agrees with Anesthesia Plan: Yes PreAnesthesia Questionnaire - Past Health History Medical/Surgical History: Denies Medical/Surgical History Cardiovascular History: Reports: None Respiratory History: Reports: None Gastrointestinal History: Reports: None [employer] History: Reports: , Spontaneous Musculoskeletal History: Reports: Other (See Below) (SCOLIOSIS) Neurological History: Reports: None Psychiatric History: Reports: None Endocrine/Metabolic History: Reports: Obesity/BMI 30+ (morbid obesity) Hematologic History: Reports: None - Infectious Disease History Infectious Disease History: Reports: Chicken Pox - SUBSTANCE USE Tobacco Use Status *Q: Light Tobacco User Days Per Week of Alcohol Use: 0 Recreational Drug Use History: No - HOME MEDS Home Medications: Home Meds Ibuprofen [Motrin] 800 mg PO Q6H PRN #90 tablet 03/03/19 [Rx] - CURRENT (IN HOUSE) MEDS Current Meds: Current Medications Butorphanol Tartrate (Stadol) 1 mg IVPUSH Q1H PRN PRN Reason: Pain Carboprost Tromethamine (Hemabate Ds) 250 mcg IM ASDIRECTED PRN PRN Reason: Post Hemorrhage Oxytocin/Sodium Chloride (Oxytocin 30 Unit/500 Ml-Ns) 30 unit in 500 mls @ 500 mls/hr IV TITRATE [facility] Tranexamic Acid 1,000 mg/ (Sodium Chloride) 110 mls @ 660 mls/hr IV ONETIME PRN PRN Reason: Bleeding Oxytocin/Sodium Chloride (Oxytocin 30 Unit/500 Ml-Ns) 30 unit in 500 mls @ 2 mls/hr IV TITRATE [facility]; Protocol Last Titration: 09/08/20 21:47 Dose: 16 munits/min, 16 mls/hr Documented by: Lactated Ringer's (Ringers, Lactated) 1,000 mls @ 150 mls/hr IV ASDIRECTED [facility] Last Admin: 09/08/20 17:30 Dose: 150 mls/hr Documented by: Lidocaine HCl (Xylocaine 1%) 50 ml INJECT ONETIME PRN PRN Reason: Laceration repair Methylergonovine Maleate (Methergine) 0.2 mg IM ASDIRECTED PRN PRN Reason: Post Hemorrhage Misoprostol (Cytotec) 200 mcg PO ONETIME PRN PRN Reason: Post Hemorrhage Nalbuphine HCl (Nubain) 10 mg IVPUSH Q1H PRN PRN Reason: Pain (severe 7-10) Sodium Chloride (Saline Flush) 10 ml FLUSH ASDIRECTED PRN PRN Reason: Keep Vein Open Sodium Chloride (Saline Flush) 2.5 ml FLUSH ASDIRECTED PRN PRN Reason: Keep Vein Open Sodium Chloride (Normal Saline) 10 ml IV ASDIRECTED PRN PRN Reason: IV Use Sterile Water (Sterile Water For Irrigation) 1,000 ml IRR ASDIRECTED PRN PRN Reason: delivery Terbutaline Sulfate (Brethine) 0.25 mg SUBCUT ASDIRECTED PRN PRN Reason: Tacysystole Discontinued Medications Oxytocin/Sodium Chloride (Oxytocin 30 Unit/500 Ml-Ns) Confirm Administered Dose 30 unit in 500 mls @ as directed .ROUTE .[facility]-MED ONE Stop: 09/08/20 18:23
[2020-09-08] MEDS ORDERED: Ropivacaine HCl/PF 100 ML ONE (22:25)
[2020-09-08] MEDS ORDERED: fentaNYL 100 MCG/2 ML SDV ONE (23:10)
[2020-09-09] MEDS ORDERED: fentaNYL 100 MCG/2 ML SDV ONE (00:22)
[2020-09-09] MEDS ORDERED: Bupivacaine 0.5% 10 ML SDV ONE (00:55)
[2020-09-09] MEDS: Lactated Ringers 1,000 ML IV SCH (01:02)
[2020-09-09] MEDS ORDERED: Acetaminophen 500 MG Tab PO PRN (03:45)
[2020-09-09] MEDS ORDERED: Ibuprofen 400 MG Tab PO PRN (03:45)
[2020-09-09] MEDS ORDERED: Lanolin 100% Cream 7 GM Tube TOP PRN (03:45)
[2020-09-09] MEDS ORDERED: Docusate Sodium 100 MG Cap PO PRN (03:45)
[2020-09-09] MEDS ORDERED: oxyCODONE 5 MG Tab PO PRN (03:45)
[2020-09-09] MEDS ORDERED: Bisacodyl 10 MG Supp RECTAL PRN (03:45)
--- NOTE | 2020-09-09 03:49 | PCM.DEL ---
L & D Note - General Info Date of Service: 09/09/20 - Delivery Note Labor: Induced by ARM, Induced by Oxytocin Delivery Outcome: Livebirth Infant Delivery Method: Spontaneous Vaginal Delivery-Single Presentation: Left Occiput Anterior (CHARLES) Nuchal Cord: None (True knot) Anesthesia Type: Epidural Amniotic Fluid Description: Clear Episiotomy Type: None Laceration: None Placenta: Intact Cord: 3 Vessels, True Knot Estimated Blood Loss: 200 Resuscitation Needed: No [place]: Bulb Syringe, [place] Used Score 1 min: 8 Score 5 min: 9 Delivery Comments (Free Text/Narrative):: Live Male delivered at 228am , 8/9 weight 3860g - General Info Date of Service: 09/09/20 - Patient Data Weight - Most Recent: 106.594 kg Lab Results Last 24 Hours: Laboratory Results - last 24 hr 09/08/20 09/08/20 Range/Units 17:30 17:30 WBC 14.06 H (4.0-11.0) K/uL RBC 4.23 L (4.30-5.90) M/uL Hgb 12.2 (12.0-16.0) g/dL Hct 36.1 (36.0-46.0) % MCV 85.3 (80.0-98.0) fL MCH 28.8 (27.0-32.0) pg MCHC 33.8 (31.0-37.0) g/dL RDW Std Deviation 42.7 (28.0-62.0) fl RDW Coeff of Massimo 14 (11.0-15.0) % Plt Count 210 (150-400) K/uL MPV 10.60 (7.40-12.00) fL Nucleated RBC % 0.0 /100WBC Nucleated RBCs # 0 K/uL Blood Type B POSITIVE Antibody Screen NEGATIVE Med Orders - Current: Current Medications Carboprost Tromethamine (Hemabate Ds) 250 mcg IM ASDIRECTED PRN PRN Reason: Post Hemorrhage Oxytocin/Sodium Chloride (Oxytocin 30 Unit/500 Ml-Ns) 30 unit in 500 mls @ 500 mls/hr IV TITRATE [facility] Tranexamic Acid 1,000 mg/ (Sodium Chloride) 110 mls @ 660 mls/hr IV ONETIME PRN PRN Reason: Bleeding Oxytocin/Sodium Chloride (Oxytocin 30 Unit/500 Ml-Ns) 30 unit in 500 mls @ 2 mls/hr IV TITRATE [facility]; Protocol Last Titration: 09/08/20 21:47 Dose: 16 munits/min, 16 mls/hr Documented by: Lactated Ringer's (Ringers, Lactated) 1,000 mls @ 150 mls/hr IV ASDIRECTED [facility] Last Admin: 09/09/20 01:02 Dose: 150 mls/hr Documented by: Lidocaine HCl (Xylocaine 1%) 50 ml INJECT ONETIME PRN PRN Reason: Laceration repair Methylergonovine Maleate (Methergine) 0.2 mg IM ASDIRECTED PRN PRN Reason: Post Hemorrhage Misoprostol (Cytotec) 200 mcg PO ONETIME PRN PRN Reason: Post Hemorrhage Nalbuphine HCl (Nubain) 10 mg IVPUSH Q1H PRN PRN Reason: Pain (severe 7-10) Sodium Chloride (Saline Flush) 10 ml FLUSH ASDIRECTED PRN PRN Reason: Keep Vein Open Sterile Water (Sterile Water For Irrigation) 1,000 ml IRR ASDIRECTED PRN PRN Reason: delivery Discontinued Medications Bupivacaine HCl (Sensorcaine-Mpf 0.5%) Confirm Administered Dose 10 ml .ROUTE .[facility]-MED ONE Stop: 09/09/20 00:56 Butorphanol Tartrate (Stadol) 1 mg IVPUSH Q1H PRN PRN Reason: Pain Fentanyl (Sublimaze) Confirm Administered Dose 100 mcg .ROUTE .[facility]-MED ONE Stop: 09/08/20 23:11 Fentanyl (Sublimaze) Confirm Administered Dose 100 mcg .ROUTE .[facility]-MED ONE Stop: 09/09/20 00:23 Oxytocin/Sodium Chloride (Oxytocin 30 Unit/500 Ml-Ns) Confirm Administered Dose 30 unit in 500 mls @ as directed .ROUTE .[facility]-MED ONE Stop: 09/08/20 18:23 Ropivacaine (Naropin 0.2%) Confirm Administered Dose 100 mls @ as directed .ROUTE .[facility]-MED ONE Stop: 09/08/20 22:26 Sodium Chloride (Saline Flush) 2.5 ml FLUSH ASDIRECTED PRN PRN Reason: Keep Vein Open Sodium Chloride (Normal Saline) 10 ml IV ASDIRECTED PRN PRN Reason: IV Use Terbutaline Sulfate (Brethine) 0.25 mg SUBCUT ASDIRECTED PRN PRN Reason: Tacysystole - Problem List & Annotations (1) (normal spontaneous vaginal delivery) SNOMED Code(s): 06315222, 370302294 Code(s): O80 - ENCOUNTER FOR FULL-TERM UNCOMPLICATED DELIVERY Status: Acute Priority: High Current Visit: No - Problem List Review Problem List Initiated/Reviewed/Updated: Yes - My Orders Last 24 Hours: My Active Orders 09/09/20 03:45 Patient Status [ADT] Routine May Shower [RC] ASDIRECTED Up ad Nettie [RC] ASDIRECTED Vital Signs [RC] PER UNIT ROUTINE Acetaminophen [Tylenol Extra Strength] 1,000 mg PO Q4H PRN Acetaminophen [Tylenol Extra Strength] 500 mg PO Q4H PRN Benzocaine/Menthol [Dermoplast Pain Relief 20%-0.5% [place]] 78 gm TOP ASDIRECTED PRN Docusate Sodium [Colace] 100 mg PO BID PRN Ibuprofen [Motrin] 400 mg PO Q4H PRN Ibuprofen [Motrin] 800 mg PO Q6H PRN Lanolin [Lansinoh HPA] See Dose Instructions TOP ASDIRECTED PRN bisacodyL [Dulcolax] 10 mg RECTAL ONETIME PRN oxyCODONE 5 mg PO Q2H PRN witch Princess [Tucks] 1 pad TOP ASDIRECTED PRN Assess Lochia [WOMSER] Per Unit Routine Assess Uterine Involution [WOMSER] Per Unit Routine Peripheral IV Discontinue [OM.PC] Routine Resuscitation Status Routine 09/09/20 03:46 Perineal Care [OM.PC] Per Unit Routine 09/09/20 Breakfast Regular Diet [DIET] 09/10/20 05:11 HEMOGLOBIN/HEMATOCRIT,HH [HEME] Timed
[2020-09-09] MEDS: Witch Hazel Medicated Pads 40/Jar TOP PRN ×2 (04:26→11:42)
[2020-09-09] MEDS: Acetaminophen 500 MG Tab PO PRN ×2 (04:27→11:43)
[2020-09-09] MEDS: Benzocaine/Menthol 20%-0.5% Spray 78 GM Cannister TOP PRN ×2 (04:27→11:43)
--- NOTE | 2020-09-09 04:50 | OR ---
SURGEON: FABIEN HANKINS DATE OF PROCEDURE: 09/09/2020 PREOPERATIVE DIAGNOSES: A 25-year-old G6, P4-0-1-4 at 40 weeks and 6 days admitted for induction of labor for postdates. POSTOPERATIVE DIAGNOSIS: 25-year-old G6, P4-0-1-4 at 40 weeks and 6 days admitted for induction of labor for postdates. PROCEDURE: Normal spontaneous vaginal delivery. ESTIMATED BLOOD LOSS: 200. IV FLUIDS: Pitocin running. ANESTHESIA: Epidural. NOTES AND FINDING: Live male delivered at 2:28 a.m. score 8 and 9, weight is 3860 g. BRIEF HISTORY: A 25-year-old, G6, P4-0-1-4 at 40 weeks 6 days, who had a low-risk care except that she was COVID positive a couple of weeks ago. The patient was 40 weeks 6 days, she was admitted for induction of labor for postdates. When she came in she was about 4, 50, -2. Pitocin was started and then she was AROM'd, which noted clear fluid. After the AROM, she made rapid labor progress within 2 hours. PROCEDURE IN DETAIL: She was noted to be pushing when I got into the room and head and body of the infant was spontaneously delivered, was placed on the maternal abdomen. Delayed cord clamping was observed. The true knot was noted. The cord was clamped after the true knot and cord blood gases were obtained and then placenta was delivered via manual massage of the uterine fundus. The uterus was noted to be well contracted. The perineum was inspected, noted to be intact. The patient tolerated the delivery well and all instrument and pad counts were correct x2. LORNA / SERGIO /[id number] CHAD
[2020-09-09] MEDS ORDERED: Metoclopramide 10 MG/2 ML SDV IVPUSH PRN (07:39)
--- NOTE | 2020-09-09 08:00 | PCM48HPAN ---
Post Anesthesia Note - EVALUATION WITHIN 48HRS OF ANESTHETIC Vital Signs in Normal Range: Yes Patient Participated in Evaluation: Yes Respiratory Function Stable: Yes Airway Patent: Yes Cardiovascular Function Stable: Yes Hydration Status Stable: Yes Pain Control Satisfactory: Yes Nausea and Vomiting Control Satisfactory: Yes Mental Status Recovered: Yes
[2020-09-09] MEDS: Ibuprofen 800 MG Tab PO PRN ×3 (08:16→20:56)
--- NOTE | 2020-09-10 07:37 | PCM.PNPP ---
- General Info Date of Service: 09/10/20 Functional Status: Reports: Pain Controlled, Tolerating Diet, Ambulating, Urinating - Review of Systems General: Reports: No Symptoms HEENT: Reports: No Symptoms Pulmonary: Reports: No Symptoms Cardiovascular: Reports: No Symptoms Gastrointestinal: Reports: No Symptoms Genitourinary: Reports: No Symptoms Musculoskeletal: Reports: No Symptoms Skin: Reports: No Symptoms Neurological: Reports: No Symptoms Psychiatric: Reports: No Symptoms - Patient Data Vital Signs - Most Recent: Last Vital Signs Temp 36.6 C 09/10/20 07:15 Pulse 86 09/10/20 07:15 Resp 16 09/10/20 07:15 BP 112/84 09/10/20 07:15 Pulse Ox 97 09/10/20 07:15 Weight - Most Recent: 106.594 kg Lab Results - Last 24 Hours: Laboratory Results - last 24 hr 09/10/20 Range/Units 05:13 Hgb 8.9 L (12.0-16.0) g/dL Hct 27.4 L (36.0-46.0) % Med Orders - Current: Current Medications Acetaminophen (Tylenol Extra Strength) 500 mg PO Q4H PRN PRN Reason: Pain Acetaminophen (Tylenol Extra Strength) 1,000 mg PO Q4H PRN PRN Reason: Pain Last Admin: 09/09/20 11:43 Dose: 1,000 mg Documented by: Benzocaine/Menthol (Dermoplast Pain Relief 20%-0.5% Arminto) 78 gm TOP ASDIRECTED PRN PRN Reason: Perineal Comfort Measure Last Admin: 09/09/20 11:43 Dose: 1 can Documented by: Bisacodyl (Dulcolax) 10 mg RECTAL ONETIME PRN PRN Reason: Constipation Carboprost Tromethamine (Hemabate Ds) 250 mcg IM ASDIRECTED PRN PRN Reason: Post Hemorrhage Docusate Sodium (Colace) 100 mg PO BID PRN PRN Reason: Constipation Emollient Ointment (Lansinoh Hpa) 0 gm TOP ASDIRECTED PRN PRN Reason: Sore Nipples Last Admin: 09/09/20 11:42 Dose: 1 gm Documented by: Oxytocin/Sodium Chloride (Oxytocin 30 Unit/500 Ml-Ns) 30 unit in 500 mls @ 500 mls/hr IV TITRATE LATANYA Tranexamic Acid 1,000 mg/ (Sodium Chloride) 110 mls @ 660 mls/hr IV ONETIME PRN PRN Reason: Bleeding Oxytocin/Sodium Chloride (Oxytocin 30 Unit/500 Ml-Ns) 30 unit in 500 mls @ 2 mls/hr IV TITRATE LATANYA; Protocol Last Titration: 09/09/20 02:30 Dose: 999 munits/min, 999 mls/hr Documented by: Lactated Ringer's (Ringers, Lactated) 1,000 mls @ 150 mls/hr IV ASDIRECTED LATANYA Last Admin: 09/09/20 01:02 Dose: 150 mls/hr Documented by: Ibuprofen (Motrin) 400 mg PO Q4H PRN PRN Reason: Pain Ibuprofen (Motrin) 800 mg PO Q6H PRN PRN Reason: Pain Last Admin: 09/09/20 20:56 Dose: 800 mg Documented by: Lidocaine HCl (Xylocaine 1%) 50 ml INJECT ONETIME PRN PRN Reason: Laceration repair Methylergonovine Maleate (Methergine) 0.2 mg IM ASDIRECTED PRN PRN Reason: Post Hemorrhage Metoclopramide HCl (Reglan) 10 mg IVPUSH Q6H PRN PRN Reason: Nausea Last Admin: 09/09/20 08:16 Dose: 10 mg Documented by: Misoprostol (Cytotec) 200 mcg PO ONETIME PRN PRN Reason: Post Hemorrhage Nalbuphine HCl (Nubain) 10 mg IVPUSH Q1H PRN PRN Reason: Pain (severe 7-10) Oxycodone HCl (Oxycodone) 5 mg PO Q2H PRN PRN Reason: Pain Sodium Chloride (Saline Flush) 10 ml FLUSH ASDIRECTED PRN PRN Reason: Keep Vein Open Sterile Water (Sterile Water For Irrigation) 1,000 ml IRR ASDIRECTED PRN PRN Reason: delivery Witch [place] (Tucks) 1 pad TOP ASDIRECTED PRN PRN Reason: comfort care Last Admin: 09/09/20 11:42 Dose: 1 tub Documented by: Discontinued Medications Bupivacaine HCl (Sensorcaine-Mpf 0.5%) Confirm Administered Dose 10 ml .ROUTE .STK-MED ONE Stop: 09/09/20 00:56 Last Admin: 09/09/20 04:42 Dose: Not Given Documented by: Butorphanol Tartrate (Stadol) 1 mg IVPUSH Q1H PRN PRN Reason: Pain Fentanyl (Sublimaze) Confirm Administered Dose 100 mcg .ROUTE .STK-MED ONE Stop: 09/08/20 23:11 Last Admin: 09/09/20 04:41 Dose: Not Given Documented by: Fentanyl (Sublimaze) Confirm Administered Dose 100 mcg .ROUTE .STK-MED ONE Stop: 09/09/20 00:23 Last Admin: 09/09/20 04:41 Dose: Not Given Documented by: Oxytocin/Sodium Chloride (Oxytocin 30 Unit/500 Ml-Ns) Confirm Administered Dose 30 unit in 500 mls @ as directed .ROUTE .TinselvisionK-MED ONE Stop: 09/08/20 18:23 Last Admin: 09/09/20 04:41 Dose: Not Given Documented by: Ropivacaine (Naropin 0.2%) Confirm Administered Dose 100 mls @ as directed .ROUTE .STMotostrano-MED ONE Stop: 09/08/20 22:26 Last Admin: 09/09/20 04:41 Dose: Not Given Documented by: Sodium Chloride (Saline Flush) 2.5 ml FLUSH ASDIRECTED PRN PRN Reason: Keep Vein Open Sodium Chloride (Normal Saline) 10 ml IV ASDIRECTED PRN PRN Reason: IV Use Terbutaline Sulfate (Brethine) 0.25 mg SUBCUT ASDIRECTED PRN PRN Reason: Tacysystole - Infant Interaction Disposition, : at Bedside Feeding: Breastfed ; Nursed Well Support Person: - Recovery Exam Fundal Tone: Firm Fundal Level: 2 Fingerbreadths Below Umbilicus Fundal Placement: Midline Lochia Amount: Scant Lochia Color: Rubra/Red Bladder Status: Voiding Urinary Elimination: Voided - Exam General: Alert, Oriented Neck: Supple Lungs: Normal Respiratory Effort GI/Abdominal Exam: Soft, Non-Tender Extremities: Non-Tender Skin: Warm, Dry, Intact Neurological: No New Focal Deficit Psy/Mental Status: Alert, Normal Affect, Normal Mood - Problem List & Annotations (1) (normal spontaneous vaginal delivery) SNOMED Code(s): 71865172, 846885671 Code(s): O80 - ENCOUNTER FOR FULL-TERM UNCOMPLICATED DELIVERY Status: Acute Priority: High Current Visit: No - Problem List Review Problem List Initiated/Reviewed/Updated: Yes - My Orders Last 24 Hours: My Active Orders 09/10/20 07:36 Ready for Discharge [RC] PER UNIT ROUTINE - Assessment Assessment:: 25yo P5 s/p , PPD#1 - Plan Plan:: Plan to discharge home today. Reviewed discharge instructions, all questions answered.
[2020-09-10] MEDS: Ibuprofen 800 MG Tab PO PRN (07:56)
== END 2020-09-10 11:35 | disposition home or self-care (01) ==
LOC: MW.OBCHECK 17:12 → MW.OB 17:14 → MW.OBCHECK 17:57 → MW.OB 17:57
PROVIDERS: ADMIT Obstetrics & Gynecology; ATTEND Obstetrics & Gynecology
DX: O48.0 Post-term pregnancy (principal); E66.01 Morbid (severe) obesity due to excess calories; Z37.0 Single live birth; Z79.899 Other long term (current) drug therapy; Z3A.40 40 weeks gestation of pregnancy; Z86.19 Personal history of other infectious and parasitic diseases; F17.210 Nicotine dependence, cigarettes, uncomplicated; Z91.010 Allergy to peanuts; Z68.41 Body mass index [BMI] 40.0-44.9, adult
CPT/HCPCS: 36415; 51702; 59025; 59409; 85014; 85018; 85027; 86592; 86850; 86900; 86901; A9270; J2590; J2765; J7120

== ENCOUNTER 2022-05-02 13:46 | Inpatient (IN) | payer MEDICAID ==
[2022-05-02] MEDS ORDERED: Butorphanol 1 MG/ML SDV IVPUSH PRN (14:52)
[2022-05-02] MEDS ORDERED: Sodium Chloride 0.9% 20 ML SDV IV PRN (14:52)
[2022-05-02] MEDS ORDERED: Tranexamic Acid 1,000 MG in Sodium Chloride 0.9% 100 ML IV PRN (14:52)
[2022-05-02] MEDS ORDERED: Water For Irrigation,Sterile 1,000 ML Container IRR PRN (14:52)
[2022-05-02] MEDS ORDERED: Carboprost Tromethamine 250 MCG/1 ML Amp IM PRN (14:52)
[2022-05-02] MEDS ORDERED: Sodium Chloride 0.9% 2.5 ML Syringe FLUSH PRN (14:52)
[2022-05-02] MEDS ORDERED: Sodium Chloride 0.9% 10 ML Syringe FLUSH PRN (14:52)
[2022-05-02] MEDS ORDERED: Misoprostol 200 MCG Tab PO PRN (14:52)
[2022-05-02] MEDS ORDERED: Lidocaine 1% 50 ML MDV INJECT PRN (14:52)
[2022-05-02] MEDS ORDERED: Oxytocin/0.9 % Sodium Chloride 30 UNIT/500 ML BAG IV SCH ×2 (15:00→17:45)
[2022-05-02] MEDS ORDERED: Lactated Ringers 1,000 ML IV SCH (15:00)
[2022-05-02] MEDS ORDERED: Terbutaline 1 MG/ML SDV SUBCUT PRN (17:31)
[2022-05-03] MEDS ORDERED: Docusate Sodium 100 MG Cap PO PRN (04:21)
[2022-05-03] MEDS ORDERED: Acetaminophen 500 MG Tab PO PRN (04:21)
[2022-05-03] MEDS ORDERED: Ibuprofen 400 MG Tab PO PRN (04:21)
[2022-05-03] MEDS ORDERED: Lanolin 100% Cream 7 GM Tube TOP PRN (04:21)
[2022-05-03] MEDS ORDERED: Benzocaine/Menthol 20%-0.5% Spray 78 GM Cannister TOP PRN (04:21)
[2022-05-03] MEDS ORDERED: oxyCODONE 5 MG Tab PO PRN (04:21)
[2022-05-03] MEDS ORDERED: Bisacodyl 10 MG Supp RECTAL PRN (04:21)
[2022-05-03] MEDS ORDERED: Witch Hazel Medicated Pads 40/Jar TOP PRN (04:21)
[2022-05-03] MEDS: Methylergonovine 0.2 MG/1 ML Amp IM PRN ×2 (04:53→06:17)
[2022-05-03] MEDS: Ibuprofen 800 MG Tab PO PRN ×2 (04:56→21:27)
[2022-05-03] MEDS: Acetaminophen 500 MG Tab PO PRN ×3 (04:57→21:26)
[2022-05-03] MEDS ORDERED: Oxytocin/0.9 % Sodium Chloride 30 UNIT/500 ML BAG ONE (05:05)
[2022-05-04] MEDS: Ibuprofen 800 MG Tab PO PRN ×2 (08:37→14:44)
== END 2022-05-04 16:44 | disposition home or self-care (01) | DRG 805 ==
LOC: MW.OBCHECK 13:46 → MW.OB 13:47 → MW.OBCHECK 15:12 → MW.OB 15:13 → OBSVTOIN 05-03 03:45 → MW.OB 05-03 10:04
PROVIDERS: ADMIT Obstetrics & Gynecology; ATTEND Obstetrics & Gynecology
PROC: 10E0XZZ Delivery of Products of Conception, External Approach (ICD-10-PCS; principal; 2022-05-03)
PROC: 10907ZC Drainage of Amniotic Fluid, Therapeutic from Products of Conception, Via Natural or Artificial Opening (ICD-10-PCS; 2022-05-03)
DX: O98.52 Other viral diseases complicating childbirth (principal); U07.1 COVID-19; Z37.0 Single live birth; Z3A.40 40 weeks gestation of pregnancy; O42.92 Full-term premature rupture of membranes, unspecified as to length of time between rupture and onset of labor; O48.0 Post-term pregnancy; O69.81X0 Labor and delivery complicated by cord around neck, without compression, not applicable or unspecified
CPT/HCPCS: 36415; 59025; 59409; 82803; 84112; 85014; 85018; 85027; 86592; 86850; 86900; 86901; A9270-GY; J2210; J2590; J3490; J7120; U0002

== ENCOUNTER 2023-09-10 07:06 | Inpatient (IN) | payer SELFPAY ==
[2023-09-10] MEDS ORDERED: Water For Irrigation,Sterile 1,000 ML Container IRR PRN (07:10)
[2023-09-10] MEDS ORDERED: Sodium Chloride 0.9% 2.5 ML Syringe FLUSH PRN (07:10)
[2023-09-10] MEDS ORDERED: Lidocaine 1% 50 ML MDV INJECT PRN (07:10)
[2023-09-10] MEDS ORDERED: Sodium Chloride 0.9% 20 ML SDV IV PRN (07:10)
[2023-09-10] MEDS ORDERED: Tranexamic Acid IN NACL,ISO-OS 1,000 MG in Premix Bag 1 BAG IV PRN ×2 (07:10)
[2023-09-10] MEDS ORDERED: Ondansetron 4 MG/2 ML SDV IVPUSH PRN (07:10)
[2023-09-10] MEDS ORDERED: Sodium Chloride 0.9% 10 ML Syringe FLUSH PRN (07:10)
[2023-09-10] MEDS ORDERED: Misoprostol 200 MCG Tab PO PRN (07:10)
[2023-09-10] MEDS ORDERED: Carboprost Tromethamine 250 MCG/1 mL Vial IM PRN (07:10)
[2023-09-10] MEDS ORDERED: Butorphanol 1 MG/ML SDV IVPUSH PRN (07:10)
[2023-09-10] MEDS ORDERED: Methylergonovine 0.2 MG/1 ML Amp IM PRN (07:10)
[2023-09-10] MEDS ORDERED: Terbutaline 1 MG/ML SDV SUBCUT PRN (07:12)
[2023-09-10] MEDS ORDERED: Oxytocin/0.9 % Sodium Chloride 30 UNIT/500 ML BAG IV SCH ×2 (07:15)
[2023-09-10] MEDS: Lactated Ringers 1,000 ML IV SCH ×3 (07:54→15:08)
[2023-09-10 08:18] LABS: HEMATOCRIT 35.3 % (37.0-47.0); HEMOGLOBIN 12.3 g/dL (12.0-16.0); IMMATURE GRAN ABSOLUTE AUTO 0.11 K/uL (0.00-0.05); IMMATURE GRAN PERCENT AUTO 0.6 % (0.0-0.4); MEAN CORPUSCULAR HEMOGLOBIN 28.5 pg (28.0-32.0); MEAN CORPUSCULAR HGB CONC 34.8 g/dL (32.0-36.0); MEAN CORPUSCULAR VOLUME 81.7 fL (83.0-99.0); MEAN PLATELET VOLUME 10.3 fL (9.4-12.3); PLATELET COUNT,PLT 307 K/uL (150-400); RED BLOOD CELL COUNT 4.32 M/uL (4.10-5.30); WHITE BLOOD CELL COUNT,WBC 18.17 K/uL (3.9-11.3)
[2023-09-10] MEDS ORDERED: Phenylephrine HCl 0.5 MG/5 ML AMP IVPUSH PRN (10:21)
[2023-09-10] MEDS ORDERED: ePHEDrine 50 MG/ML SDV IVPUSH PRN ×2 (10:21)
[2023-09-10] MEDS ORDERED: Ropivacaine HCl/PF 400 MG in Premix Bag 1 BAG EPIDUR SCH (10:30)
[2023-09-10] MEDS ORDERED: fentaNYL 100 MCG/2 ML SDV ONE (12:26)
[2023-09-10] MEDS ORDERED: dexmedeTOMIDine HCl 200 MCG/2 ML SDV ONE (12:26)
[2023-09-10] MEDS ORDERED: Bupivacaine 0.25% 10 ML SDV ONE (12:27)
[2023-09-10] MEDS ORDERED: Docusate Sodium 100 MG Cap PO PRN (16:21)
[2023-09-10] MEDS ORDERED: Benzocaine/Menthol 20%-0.5% Spray 78 GM Cannister TOP PRN (16:21)
[2023-09-10] MEDS ORDERED: oxyCODONE 5 MG Tab PO PRN (16:21)
[2023-09-10] MEDS ORDERED: Witch Hazel Medicated Pads 40/Jar TOP PRN (16:21)
[2023-09-10] MEDS ORDERED: Lanolin 100% Cream 7 GM Tube TOP PRN (16:21)
[2023-09-10] MEDS: Acetaminophen 500 MG Tab PO PRN (19:40)
[2023-09-10] MEDS: Ibuprofen 800 MG Tab PO PRN (21:57)
[2023-09-11] MEDS: Acetaminophen 500 MG Tab PO PRN (00:09)
[2023-09-11 06:46] LABS: HEMATOCRIT 31.7 % (37.0-47.0); HEMOGLOBIN 10.8 g/dL (12.0-16.0)
[2023-09-11] MEDS: Ibuprofen 800 MG Tab PO PRN (09:55)
== END 2023-09-11 18:31 | disposition home or self-care (01) | DRG 807 ==
LOC: UNDOADMOB 07:06 → MW.OB 07:06 → OBSVTOIN 15:39 → MW.OB 22:13
PROVIDERS: ADMIT Obstetrics & Gynecology; ATTEND Obstetrics & Gynecology
PROC: 10E0XZZ Delivery of Products of Conception, External Approach (ICD-10-PCS; principal; 2023-09-10)
DX: O99.214 Obesity complicating childbirth (principal); Z37.0 Single live birth; Z3A.39 39 weeks gestation of pregnancy
CPT/HCPCS: 36415; 51702; 59025; 59409; 85014; 85018; 85027; 86592; 86850; 86900; 86901; A9270-GY; J2405; J2590; J2795; J3010; J3490; J7120